=== PATIENT | female | born 1985 | race African-American/Black ===

== ENCOUNTER 2016-05-06 15:51 | Emergency (ER) | payer OTHER ==
[~2016-05-06] VITALS: Ht 180.3 cm; Wt 72.6 kg
[2016-05-06 18:00] VITALS: BP 126/75
== END 2016-05-06 18:20 | disposition home or self-care (01) ==
LOC: ER 15:59
DX: M94.0 Chondrocostal junction syndrome [Tietze] (principal); R07.89 Other chest pain
CPT/HCPCS: 71020; 84703; 93005; 99284; A4606; Z7610

== ENCOUNTER 2016-06-04 18:33 | Emergency (ER) | payer OTHER ==
[~2016-06-04] VITALS: Ht 180.3 cm; Wt 78.9 kg
--- NOTE | 2016-06-04 18:44 | NUR ---
Presents self to ed dt rt lower abdominal pain x 1 month,cramps like, worst today, 8/10, non radiating. Patient denies hematuria nor dysuria. No n/v. patient afebrile. blayne garcia
[2016-06-04] MEDS ORDERED: MORPHINE SULFATE INJ 2 MG/ML DISP.SYRIN IV ONE (19:00)
[2016-06-04] MEDS ORDERED: ONDANSETRON HCL/PF 4 MG/2 ML VIAL IVP ONE (19:00)
[2016-06-04] MEDS ORDERED: IV NS 0.9% 1,000 ML BAG IV ONE (19:00)
[2016-06-04] MEDS ORDERED: ONDANSETRON HCL/PF 4 MG/2 ML VIAL ONE (19:02)
[2016-06-04] MEDS ORDERED: MORPHINE SULFATE INJ 2 MG/ML DISP.SYRIN ONE (19:02)
[2016-06-04] MEDS ORDERED: IV SET PRIMARY 1 EA INFUS.SET MC ONE (19:02)
[2016-06-04] MEDS ORDERED: IV NS 0.9% 1,000 ML ONE (19:03)
--- NOTE | 2016-06-04 19:09 | NUR ---
REPORT REC'D FROM FELIPA PATTERSON FOR [facility].
--- NOTE | 2016-06-04 19:11 | NUR ---
PT IS GOING TO CT VIA .
--- NOTE | 2016-06-04 19:12 | NUR ---
pt taken to ct
[2016-06-04 19:14] LABS: BASOPHILS # (AUTO) 0.1 /CMM (0.0-0.2); BASOPHILS % (AUTO) 0.7 % (0.0-2.0); EOSINOPHILS # (AUTO) 0.4 /CMM (0.0-0.7); EOSINOPHILS % (AUTO) 4.1 % (0.0-6.0); HEMATOCRIT 35 % (33-45); HEMOGLOBIN 11.4 g/dL (11.5-14.8); LYMPHOCYTES # (AUTO) 2.3 /CMM (0.8-4.8); LYMPHOCYTES % (AUTO) 26.3 % (20.0-44.0); MEAN CORPUSCULAR HEMOGLOBIN 28 PG (26.0-33.0); MEAN CORPUSCULAR HGB CONC 32 g/dl (31.0-36.0); MEAN CORPUSCULAR VOLUME 88 fL (82-100); MONOCYTES # (AUTO) 0.8 /CMM (0.1-1.30); MONOCYTES % (AUTO) 8.8 % (2.0-12.0); NEUTROPHILS # (AUTO) 5.1 /CMM (1.8-8.9); NEUTROPHILS % (AUTO) 60.1 % (43.0-81.0); PLATELET COUNT (AUTO) 223 /CMM (150-450); RDW COEFFICIENT OF VARIATION 12.9 (11.5-15.0); RED BLOOD CELL COUNT(AUTO) 4.01 MIL/uL (4.0-5.2); WHITE BLOOD COUNT (AUTO) 8.7 K/uL (4.3-11.0)
[2016-06-04 19:16] LABS: APPEARANCE,URINE Clear (CLEAR); BILIRUBIN,URINE Negative (NEGATIVE); BLOOD, URINE Trace-intact Ery/uL (NEGATIVE); COLOR,URINE Yellow (YELLOW); KETONES,URINE Negative (NEGATIVE); LEUKOCYTE ESTERASE ,URINE Negative (NEGATIVE); NITRITE, URINE Negative (NEGATIVE); PH,URINE 8.5 (5.0-8.0); PROTEIN,URINE Trace mg/dl (NEGATIVE); UGLUCOSE Negative (NEGATIVE)
[2016-06-04 19:17] LABS: PREGNANCY TEST URINE QUAL NEGATIVE (NEGATIVE)
[2016-06-04 19:23] LABS: CALCIUM, SERUM 9.1 mg/dL (8.5-10.1); CREATININE 0.8 mg/dL (0.6-1.3); POTASSIUM 3.9 mmol/L (3.5-5.1)
[2016-06-04 19:35] LABS: ALBUMIN 3.7 g/dL (3.4-5.0); BILIRUBIN,DIRECT 0.1 mg/dL (0.0-0.2); BILIRUBIN,TOTAL 0.4 mg/dL (0.2-1.0); TOTAL PROTEIN, SERUM 7.6 g/dL (6.4-8.2)
[2016-06-04 19:43] LABS: ADD URINE CULTURE NO; BACTERIA,URINE Few /HPF (None Seen); SQUAMOUS EPITHELIAL CELL,UR Few /HPF (None Seen)
--- NOTE | 2016-06-04 19:46 | NUR ---
PT IS NOW IN US.
--- NOTE | 2016-06-04 20:00 | NUR ---
PT RETURNED FROM US.
--- NOTE | 2016-06-04 20:03 | NUR ---
LARRY ABERNATHY IS AT THE BEDSIDE SPEAKING TO THE PT RE: FINDINGS.
[2016-06-04] MEDS ORDERED: IV NS 0.9% 250 ML IV ONE (20:11)
[2016-06-04] MEDS ORDERED: IOHEXOL-300 100 ML VIAL IV ONE (20:11)
[2016-06-04] MEDS ORDERED: CT SWABBABLE VALVE TRANS SET 1 EA INFUS.SET MC ONE (20:11)
--- NOTE | 2016-06-04 20:11 | NUR ---
18G IV STARTED IN RAC.
--- NOTE | 2016-06-04 20:14 | NUR ---
PT IS GOING TO CT WITH CONTRAST VIA WC.
--- NOTE | 2016-06-04 21:32 | NUR ---
Patient discharged to home in stable condition. Written and verbal after care instructions given. Patient verbalizes understanding of instruction AND RX. PT AMBULATED OUT WITH A STEADY GAIT. PT WAS INSTRUCTED NOT TO DRIVE. PT'S FRIEND IS DRIVING PT HOME. VSS
--- NOTE | 2016-06-04 21:32 | NUR ---
18G RAC AND 20G RT WRIST IV'S removed. Catheter intact and site benign. Pressure and 4x4 applied to site. No bleeding noted.
[2016-06-04 21:33] VITALS: BP 109/75
== END 2016-06-04 21:35 | disposition home or self-care (01) ==
LOC: ER 18:36
DX: N83.201 Unspecified ovarian cyst, right side (principal)
CPT/HCPCS: 36415; 76856-TC; 80048-TC; 80076-TC; 81000-TC; 83690-TC; 84703-TC; 85025-TC; A4606; J2270; J2405; J7030; J7050; Q9967; Z7610

== ENCOUNTER 2016-09-15 23:03 | Emergency (ER) | payer MEDICAID, OTHER ==
[~2016-09-15] VITALS: Ht 180.3 cm; Wt 78.0 kg
[2016-09-15 23:14] VITALS: BP 123/74
[2016-09-15 23:59] LABS: APPEARANCE,URINE CLEAR (CLEAR); BILIRUBIN,URINE NEGATIVE (NEGATIVE); BLOOD, URINE NEGATIVE Ery/uL (NEGATIVE); COLOR,URINE YELLOW (YELLOW); KETONES,URINE NEGATIVE (NEGATIVE); LEUKOCYTE ESTERASE ,URINE 1+ (NEGATIVE); NITRITE, URINE NEGATIVE (NEGATIVE); PH,URINE 5.5 (5.0-8.0); PROTEIN,URINE NEGATIVE (NEGATIVE); UGLUCOSE NEGATIVE (NEGATIVE); UROBILINOGEN,URINE 0.2 EU/dL (0.2)
[2016-09-16] MEDS ORDERED: ONDANSETRON 4 MG TAB.RAPDIS SL ONE
[2016-09-16 00:01] LABS: PREGNANCY TEST URINE QUAL NEGATIVE (NEGATIVE); RBC,URINE NONE SEEN /HPF (0-2)
[2016-09-16 00:02] LABS: BACTERIA,URINE None seen /HPF (None Seen); SQUAMOUS EPITHELIAL CELL,UR Few /HPF (None Seen); WBC,URINE 0-2 /HPF (0-3)
[2016-09-16] MEDS ORDERED: IBUPROFEN 600 MG TABLET PO ONE ×2 (00:18)
[2016-09-16] MEDS ORDERED: ONDANSETRON 4 MG TAB.RAPDIS ONE (00:18)
== END 2016-09-16 00:32 | disposition home or self-care (01) ==
LOC: ER 23:07
DX: R51 Headache (principal); M62.838 Other muscle spasm; R11.0 Nausea
CPT/HCPCS: 81001; 84703; 87086; 99284; A4606; Q0162; Z7610; 81000-TC

== ENCOUNTER 2016-11-04 17:05 | Emergency (ER) | payer MEDICAID ==
[~2016-11-04] VITALS: Ht 180.3 cm; Wt 72.6 kg
[2016-11-04 17:30] VITALS: BP 119/81
== END 2016-11-04 18:01 | disposition home or self-care (01) ==
LOC: ER 17:13
DX: Z76.0 Encounter for issue of repeat prescription (principal); F41.0 Panic disorder [episodic paroxysmal anxiety]
CPT/HCPCS: 99283; A4606; Z7610